=== PATIENT | male | born 1965 | race African-American/Black ===

== ENCOUNTER 2019-11-03 | Emergency (ER) | payer MEDICARE, MEDICAID ==
[2019-11-04 00:46] LABS: IMMATURE GRANULOCYTES 0.2 % (0.0-5.0); MEAN CELL VOLUME 100.5 fL CALC (80.0-100.0); MEAN CORPUSCULAR HGB 30.2 pG CALC (26.0-32.0); NEUT# 7.42 thou/uL (1.82-7.42); RED BLOOD COUNT 3.98 mill/uL (4.70-6.10); RED CELL DISTRI WIDTH 13.6 % (11.5-15.5)
[2019-11-04 01:01] LABS: ALBUMIN 4.6 g/dL (3.2-5.0); ALKALINE PHOSPHATASE 102 u/l (38-126); ANION GAP 13 (6-22 (CALC)); BILIRUBIN, TOTAL 0.3 mg/dL (0.0-1.4); BUN 18 mg/dL (9-20); BUN/CREATININE RATIO 22 (12-20 (CALC)); CARBON DIOXIDE 27 mmol/l (22-30); CHLORIDE 103 mmol/l (95-108); CREATININE 0.8 mg/dL (0.7-1.3); GFR > 60 ML/MIN (>=60 (CALC)); GFR FOR AFR.AMER. > 60 ML/MIN (>=60 (CALC)); POTASSIUM 4.4 mmol/l (3.5-5.1); SGOT/AST 30 u/l (17-59); SODIUM 138 mmol/l (137-146); TOTAL PROTEIN 7.4 g/dL (6.3-8.2)
[2019-11-04] MEDS ORDERED: PREDNISONE20 MG PO (01:51)
[2019-11-04] MEDS ORDERED: OXYCODONE20 M1 PO (01:52)
[2019-11-04] MEDS ORDERED: FOLIC ACID1 MG PO (01:53)
[2019-11-04] MEDS ORDERED: MORPHINE SUL30 M3 PO (01:53)
[2019-11-04] MEDS ORDERED: AMOX/K CLAV875 M1 PO (02:22)
[2019-11-04] MEDS ORDERED: TESSALON PER100 MG PO (02:22)
== END 2019-11-04 03:18 | disposition home or self-care (01) ==
DX: J40 Bronchitis, not specified as acute or chronic (principal); M06.9 Rheumatoid arthritis, unspecified

== ENCOUNTER 2019-11-10 | Emergency (ER) | payer MEDICARE, MEDICAID ==
[~2019-11-10] MED LIST: AMOX/K CLAV875 M1 PO; FOLIC ACID1 MG PO; MORPHINE SUL30 M3 PO; OXYCODONE20 M1 PO; PREDNISONE20 MG PO; TESSALON PER100 MG PO
[2019-11-11 00:47] LABS: HEMATOCRIT 43.7 % (39.0-50.0); HEMOGLOBIN 13.3 g/dl (14.0-18.0); IMMATURE GRANULOCYTES 0.5 % (0.0-5.0); MEAN CELL VOLUME 98.4 fL CALC (80.0-100.0); MEAN CORPUSCULAR HGB CONC 30.4 g/dL CAL (32.0-36.0); NEUT# 6.73 thou/uL (1.82-7.42); RED BLOOD COUNT 4.44 mill/uL (4.70-6.10); RED CELL DISTRI WIDTH 13.3 % (11.5-15.5)
[2019-11-11 01:13] LABS: ALBUMIN 4.9 g/dL (3.2-5.0); ALKALINE PHOSPHATASE 82 u/l (38-126); ANION GAP 15 (6-22 (CALC)); BILIRUBIN, TOTAL 0.6 mg/dL (0.0-1.4); BUN 20 mg/dL (9-20); BUN/CREATININE RATIO 21 (12-20 (CALC)); CARBON DIOXIDE 24 mmol/l (22-30); CHLORIDE 103 mmol/l (95-108); GFR > 60 ML/MIN (>=60 (CALC)); GFR FOR AFR.AMER. > 60 ML/MIN (>=60 (CALC)); SGOT/AST 36 u/l (17-59); SODIUM 138 mmol/l (137-146); TOTAL PROTEIN 7.7 g/dL (6.3-8.2)
[2019-11-11 01:44] LABS: URINE BILIRUBIN - DIPSTICK NEGATIVE (NEGATIVE); URINE BLOOD DIPSTICK NEGATIVE (NEGATIVE); URINE COLOR YELLOW; URINE GLUCOSE - DIPSTICK NEGATIVE (NEGATIVE); URINE KETONE NEGATIVE (NEGATIVE); URINE LEUK ESTERASE NEGATIVE (NEGATIVE); URINE NITRITE - DIPSTICK NEGATIVE (Negative); URINE PH 5.5 (4.5-8.0); URINE PROTEIN - DIPSTICK NEGATIVE (NEG-TRACE); URINE SPECIFIC GRAVITY >=1.030; URINE UROBILINOGEN - DIPSTICK 0.2 E.U./dL (0.2)
[2019-11-11 01:47] LABS: BARBITURATES NEGATIVE (NEGATIVE); COCAINE NEGATIVE (NEGATIVE); METHADONE NEGATIVE (NEGATIVE); OXCYCODONE POSITIVE (NEGATIVE); TETRAHYDROCANNABIONOL NEGATIVE (NEGATIVE); TRICYLIC ANTIDEPRESSANTS NEGATIVE (NEGATIVE)
[2019-11-11] MEDS ORDERED: CLEOCIN300 MG PO (04:35)
== END 2019-11-11 05:25 | disposition home or self-care (01) ==
PROVIDERS: Emergency Medicine
DX: J02.0 Streptococcal pharyngitis (principal); R07.89 Other chest pain; M06.9 Rheumatoid arthritis, unspecified; Z20.828 Contact with and (suspected) exposure to other viral communicable diseases

== ENCOUNTER 2020-06-27 18:27 | Emergency (ER) | payer MEDICARE, MEDICAID ==
[~2020-06-27] VITALS: Ht 182.9 cm; Wt 50.0 kg
[~2020-06-27 18:27] MED LIST changes: +CLEOCIN300 MG PO
[2020-06-27 20:15] VITALS: BP 154/69
== END 2020-06-27 20:15 | disposition home or self-care (01) ==
LOC: ED 18:27
DX: S68.512A Complete traumatic transphalangeal amputation of left thumb, initial encounter (principal); M06.9 Rheumatoid arthritis, unspecified; W31.2XXA Contact with powered woodworking and forming machines, initial encounter; Y92.009 Unspecified place in unspecified non-institutional (private) residence as the place of occurrence of the external cause

== ENCOUNTER 2020-07-01 23:45 | Emergency (ER) | payer MEDICARE, MEDICAID ==
[~2020-07-01] VITALS: Ht 182.9 cm; Wt 63.0 kg
[2020-07-02 00:47] VITALS: BP 124/68
[2020-07-02] MEDS ORDERED: ACETAMINOPHEN500 M1 PO (01:31)
[2020-07-02] MEDS ORDERED: CEPHALEXIN500 MG PO (01:32)
[2020-07-02] MEDS ORDERED: KAOPECTATE262 MG/15 PO (01:32)
[2020-07-02] MEDS ORDERED: FOLIC ACID1 MG PO (01:33)
[2020-07-02] MEDS ORDERED: FAMOTIDINE20 M1 PO (01:33)
[2020-07-02] MEDS ORDERED: GABAPENTIN100 MG PO (01:34)
[2020-07-02] MEDS ORDERED: HYDROXYCHLOR200 M1 PO (01:35)
[2020-07-02] MEDS ORDERED: LIDOCAINE/PRILOCAINE (01:38)
[2020-07-02] MEDS ORDERED: METHOTREXATE S2.5 MG PO (01:39)
[2020-07-02] MEDS ORDERED: MORPHINE SULFAT60 M3 PO (01:40)
[2020-07-02] MEDS ORDERED: OMEPRAZOLE10 MG PO (01:41)
[2020-07-02] MEDS ORDERED: OXYCODONE15 MG PO (01:41)
[2020-07-02] MEDS ORDERED: RMFLEX PO (01:42)
[2020-07-02] MEDS ORDERED: PREDNISONE5 MG PO (01:42)
[2020-07-02] MEDS ORDERED: SULFASALAZIN500 M1 PO (01:43)
[2020-07-02] MEDS ORDERED: SUMATRIPTAN25 MG PO (01:44)
== END 2020-07-02 00:48 ==
LOC: ED 23:45
DX: G89.18 Other acute postprocedural pain (principal); M06.9 Rheumatoid arthritis, unspecified

== ENCOUNTER 2020-09-14 11:52 | Emergency (ER) | payer MEDICARE, MEDICAID ==
[~2020-09-14] VITALS: Ht 182.9 cm; Wt 74.0 kg
[~2020-09-14 11:52] MED LIST changes: +ACETAMINOPHEN500 M1 PO; +CEPHALEXIN500 MG PO; +FAMOTIDINE20 M1 PO; +GABAPENTIN100 MG PO; +HYDROXYCHLOR200 M1 PO; +KAOPECTATE262 MG/15 PO; +LIDOCAINE/PRILOCAINE; +METHOTREXATE S2.5 MG PO; +MORPHINE SULFAT60 M3 PO; +OMEPRAZOLE10 MG PO; +OXYCODONE15 MG PO; +PREDNISONE5 MG PO; +RMFLEX PO; +SULFASALAZIN500 M1 PO; +SUMATRIPTAN25 MG PO
[2020-09-14 13:58] VITALS: BP 146/85
== END 2020-09-14 14:10 | disposition home or self-care (01) ==
LOC: ED 11:52
DX: G43.909 Migraine, unspecified, not intractable, without status migrainosus (principal); M06.9 Rheumatoid arthritis, unspecified

== ENCOUNTER 2021-04-29 03:49 | Emergency (ER) | payer MEDICARE, MEDICAID ==
[~2021-04-29] VITALS: Ht 182.9 cm; Wt 63.0 kg
[2021-04-29 05:20] LABS: HEMATOCRIT 46.6 % (39.0-50.0); IMMATURE GRANULOCYTES 0.3 % (0.0-5.0); MEAN CELL VOLUME 98.3 fL CALC (80.0-100.0); MEAN CORPUSCULAR HGB 29.5 pG CALC (26.0-32.0); NEUT# 5.44 thou/uL (1.82-7.42); RED BLOOD COUNT 4.74 mill/uL (4.70-6.10); RED CELL DISTRI WIDTH 12.9 % (11.5-15.5)
[2021-04-29 05:42] LABS: ALBUMIN 4.5 g/dL (3.2-5.0); ALKALINE PHOSPHATASE 70 u/l (38-126); AMYLASE 117 u/l (30-110); BILIRUBIN, TOTAL 0.5 mg/dL (0.0-1.4); BUN 16 mg/dL (9-20); BUN/CREATININE RATIO 21 (12-20 (CALC)); CHLORIDE 99 mmol/l (95-108); CREATININE 0.8 mg/dL (0.7-1.3); GFR > 60 ML/MIN (>=60 (CALC)); GFR FOR AFR.AMER. > 60 ML/MIN (>=60 (CALC)); LIPASE 52 u/l (23-300); POTASSIUM 4.4 mmol/l (3.5-5.1); SGOT/AST 29 u/l (17-59); SODIUM 136 mmol/l (137-146); TOTAL PROTEIN 7.2 g/dL (6.3-8.2)
[2021-04-29 05:43] LABS: ACT PARTIAL THROMBO TIME 22.4 SECONDS (20.0-32.5); PROTHROMBIN TIME 10.4 SECONDS (9.0-12.5)
[2021-04-29 05:54] LABS: ANION GAP 9 (6-22 (CALC)); CARBON DIOXIDE 32 mmol/l (22-30); MYOGLOBIN 30 ng/mL (0 - 121)
[2021-04-29] MEDS ORDERED: PRILOSEC20 MG/CAP PO (06:09)
[2021-04-29 06:10] VITALS: BP 129/76
== END 2021-04-29 06:21 | disposition home or self-care (01) ==
LOC: ED 03:49
PROVIDERS: Family Medicine
DX: R07.89 Other chest pain (principal); M06.9 Rheumatoid arthritis, unspecified; Z20.822 Contact with and (suspected) exposure to COVID-19